=== PATIENT | female | born 1975 | race Caucasian/White ===

== ENCOUNTER → 2019-01-27 | Outpatient (CLI) | payer OTHER ==
--- NOTE | 2019-01-28 13:26 | RAD ---
EXAM DESCRIPTION: Chest,2 Views: CR/DR CLINICAL HISTORY: 43 years Female FAMILY HISTORY OF LUNG CANCER COMPARISON: None. TECHNIQUE: Two views. PA and Lateral. FINDINGS: Lungs: Normal volumes and clear of infiltrate. Pleural spaces: No effusion or pneumothorax bilaterally. Heart: Normal size. Pulmonary Vascularity: Not increased. Mediastinum: Not widened. Aorta: Unremarkable. Bony Thorax/Spine: No acute bony thoracic abnormalities. IMPRESSION: No radiographic evidence of acute cardiopulmonary disease. Chest CT scan without or with IV contrast is more sensitive screening imaging examination for lung cancer. Electronically signed by: Sesar Evans MD 01/28/2019 1:25 PM CDT
--- NOTE | 2019-01-29 17:01 | MAM ---
EXAM DESCRIPTION: 3D Screening BILATERAL : Digital Mammography. CLINICAL HISTORY: 43 years Female SCREEN . Soreness left breast. Remote family history of breast cancer. No personal history of breast cancer. Menarche age 13. Childbirth. Premenopausal. No HRT. Lifetime risk of developing breast cancer (Tyrer-Cuzick model)(%): 8.0. COMPARISON: Baseline study at this facility.. No prior reports available. TECHNIQUE: Bilateral CC and MLO projection full-field images, digital tomosynthesis mammographic technique. Bilateral digital 2-D full-field MLO images. CAD not available for tomosynthesis or 2-D images. FINDINGS: The breast parenchymal density pattern is: Heterogeneously dense breast tissue, which may obscure small masses. No skin thickening or nipple retraction. Focal asymmetry in the middle third of the right breast 12:00, 6 cm from the nipple. Focal asymmetry middle third lateral right breast 9:00 position 5 cm from the nipple. Focal asymmetry posterior third left breast 2:30 position 10 cm from the nipple. IMPRESSION: BI-RADS CATEGORY: 0 - INCOMPLETE- Need additional imaging evaluation. FOLLOW-UP: Recall for additional imaging: Bilateral full-field LM 2-D and tomosynthesis images. Targeted ultrasound bilateral breasts, region of interest.. Written communication concerning the IMPRESSION and Follow-up, will be mailed to the patient and referring health care provider. Electronically signed by: Sesar Evans MD 01/29/2019 4:59 PM CDT
== END ==
LOC: RAD 14:19
PROVIDERS: ATTEND Obstetrics & Gynecology
DX: Z12.31 Encounter for screening mammogram for malignant neoplasm of breast (principal); Z80.1 Family history of malignant neoplasm of trachea, bronchus and lung

== ENCOUNTER → 2019-02-11 | Outpatient (CLI) | payer OTHER ==
--- NOTE | 2019-02-12 11:07 | MAM ---
EXAM DESCRIPTION: 3D Diagnostic, Bilateral (accession [id number]), Breast,Bilateral (accession [id number]): Ultrasound CLINICAL HISTORY: 43 yearsFemaleOther abnormal and inconclusive findings on diagnostic imaging focal asymmetry right breast and left breast. No complaints or personal history of breast cancer. Remote family history of breast cancer. Menarche age 13. Childbirth. Premenopausal. No HRT. Lifetime risk of developing breast cancer (Tyrer-Cuzick model)(%): 8.0. COMPARISON: Bilateral screening digital breast tomosynthesis 27 January 2019. TECHNIQUE: Bilateral LM projection full-field images, digital tomosynthesis technique. Bilateral 2-D digital full-field images. : LM projection. CAD not available. . Transcutaneous scanning of the bilateral breasts utilizing mackey-scale and Doppler modes. Scanning performed by the severity of illness coordinator and Dr. Evans on 11 February 2019 and 12 February 2019. FINDINGS: The breast parenchymal density pattern is: Heterogeneously dense breast tissue, which may obscure small masses. No skin thickening or nipple retraction focal asymmetry is still visualized in the upper outer quadrant of the posterior left breast on the LM tomosynthesis. Lateral circumscribed mass density at 9 o'clock right breast, 6 cm from the nipple, possibly lymph node or fibroadenoma. Similar appearing density at 12:00 position 6 cm from the right nipple. No suspicious microcalcifications bilaterally. Ultrasound: Scanning of the right breast laterally. Emphasis on the 9:00 sector, 4 cm from the nipple. Heterogeneous mixture of fibroglandular elements and fatty tissues. Circumscribed mass with echogenic and hypoechoic elements measuring 0.7 x 0.6 x 0.2 cm. Wider than tall orientation minimal vascularity with no posterior acoustic features. A second circumscribed nodule in the nearby soft tissues is mostly echogenic with hypoechoic partial rim which is circumscribed. 0.6 x 0.6 x 0.4 cm. Minimal posterior acoustic shadowing and wider than tall orientation with a vascular pedicle consistent with a lymph node. Scanning at 12:00 position 6 cm from the nipple to the nipple small echogenic areas no definite boundaries. Also islands of fibroglandular tissue. No dominant solid mass or distinct cyst. No large calcifications or parenchymal edema. No overlying skin changes. Scanning of the left progressed upper outer quadrant posterior third. Approximately 9 cm from the nipple. Heterogeneous fatty and fibroglandular tissues mixed. No dominant solid mass or distinct cyst. No parenchymal edema or large calcifications. No overlying skin changes. IMPRESSION: Benign exam. Lymph nodes in the right breast. BIRAD CATEGORY: 2 BENIGN FINDINGS. RECOMMENDATIONS: FOLLOW UP: Routine digital bilateral mammographic screening, one year interval from January 2019. Written communication explaining the IMPRESSION and follow-up, will be mailed to the patient and referring health care provider. The FINDINGS and the FOLLOW-UP plan were reviewed in person with the patient after the examination. According to the [employer], yearly mammograms are recommended starting at age 40 and continuing as long as a woman is in good health. Any breast change noted on a breast self-exam should be reported promptly to the patient's healthcare provider. Breast MRI is recommended for women with an approximately 20-25% or greater lifetime risk of breast cancer, including women with a strong family history of breast or ovarian cancer and women who have been treated for Hodgkin's disease. A negative mammographic report should not delay tissue diagnosis in patients with significant clinical history or physical findings. Extremely dense breast tissue limits the sensitivity of digital mammography. Electronically signed by: Sesar Evans MD 02/12/2019 11:05 AM CDT
== END ==
LOC: MAMMO 13:00
PROVIDERS: ATTEND Obstetrics & Gynecology
DX: R92.8 Other abnormal and inconclusive findings on diagnostic imaging of breast (principal)
CPT/HCPCS: 76641; 77066; G0279

== ENCOUNTER → 2020-02-24 | Outpatient (CLI) | payer OTHER | LOC: GMAL 10:54 | PROVIDERS: ATTEND Family Medicine | DX: D51.9 Vitamin B12 deficiency anemia, unspecified (principal); Z79.899 Other long term (current) drug therapy; E55.9 Vitamin D deficiency, unspecified ==